=== PATIENT | female | born 1950 | race Caucasian/White ===

== ENCOUNTER 2021-08-12 11:07 | Inpatient (IN) | payer MEDICARE ==
[~2021-08-12] VITALS: Ht 170.2 cm; Wt 104.3 kg
[~2021-08-12 11:07] MED LIST: ACTOS15 MG PO; ATENOLOL50 MG PO; ATORVASTATIN CA20 MG PO; CETIRIZINE HCL10 MG PO; FAMOTIDINE20 MG PO; GLIMEPIRIDE2 MG PO; LEVOTHYROXINE75 MCG PO; METFORMIN HCL500 MG PO; MYRBETRIQ50 MG PO; OLMESARTAN-HCT1 EAC1 PO; TYLENOL ARTHRITIS PO; VASCEPA1 GM PO; VIT D PO
[2021-08-12 12:14] LABS: BASOPHILS # (AUTO) 0.1 (0.0-0.1); BASOPHILS % 0.2 % (0.0-1.0); EOSINOPHILS # (AUTO) 0.1 (0.0-0.4); EOSINOPHILS % 0.6 % (0.0-6.0); HEMATOCRIT 35.4 % (34.2-44.1); HEMOGLOBIN 10.8 g/dL (12.0-16.0); LYMPHOCYTES # (AUTO) 2.1 (1.0-3.2); LYMPHOCYTES % 9.4 % (18.0-39.1); MEAN CORPUSCULAR HEMOGLOBIN 26.2 pg (28-32); MEAN CORPUSCULAR HGB CONC 30.5 g/dL (31-35); MEAN CORPUSCULAR VOLUME 85.7 fL (81-99); MONOCYTES # (AUTO) 1.3 (0.2-0.8); MONOCYTES % 5.7 % (4.4-11.3); NEUTROPHILS # (AUTO) 18.1 (2.1-6.9); NEUTROPHILS % 83.3 % (38.7-80.0); PLATELET COUNT 276 x10e3/uL (140-360); RED BLOOD COUNT 4.13 x10e6/uL (3.6-5.1); RED CELL DISTRIBUTION WIDTH 14.7 % (11.7-14.4)
[2021-08-12 12:40] LABS: ALBUMIN 3.4 g/dL (3.5-5.0); ALBUMIN/GLOBULIN RATIO 0.9 (0.8-2.0); ANION GAP 18.3 mmol/L (8-16); CALCIUM 9.7 mg/dL (8.4-10.2); CREATININE, SERUM 1.79 mg/dL (0.57-1.11); POTASSIUM 4.3 mmol/L (3.5-5.1)
[2021-08-12] MEDS ORDERED: ONDANSETRON HCL INJ 2MG/ML 2ML 2 MG/ML VIAL IV PRN ×2 (12:45→14:15)
[2021-08-12] MEDS ORDERED: TAMSULOSIN HCL 0.4 MG CAP PO SCH (12:45)
[2021-08-12] MEDS ORDERED: Morphine 2mg Syringe 2 MG/ML SYR IV PRN (12:45)
[2021-08-12] MEDS ORDERED: CEFTRIAXONE 1 GM VIAL IM ONE (12:45)
[2021-08-12 12:47] LABS: CLARITY,URINE CLEAR (CLEAR); COLOR,URINE YELLOW (YELLOW); KETONES,URINE NEGATIVE (NEGATIVE); LEUKOCYTE ESTERASE ,URINE NEGATIVE (NEGATIVE); NITRITE,URINE NEGATIVE (NEGATIVE); PROTEIN,URINE DIPSTICK 1+ (NEGATIVE)
[2021-08-12 12:48] LABS: URINE UROBILINOGEN 0.2 mg/dL (0.2 - 1)
[2021-08-12 12:57] LABS: EPITHELIAL CELLS,URINE RARE /LPF; MUCUS,URINE FEW (RARE); RBC,URINE 0-5 /HPF (0-5); WBC,URINE (MAN) 0-5 /HPF (0-5)
[2021-08-12 13:01] LABS: CREATINE KINASE MB 5.7 ng/mL (0-5.0)
[2021-08-12] MEDS ORDERED: CEFTRIAXONE 1 GM in SODIUM CHLORIDE 0.9% 50ML 50 ML IV ONE (13:30)
[2021-08-12] MEDS ORDERED: Morphine 4mg Syringe 4 MG/ML INJ IV PRN (14:15)
[2021-08-12] MEDS ORDERED: ACETAMINOPHEN 325 MG TAB PO PRN (14:30)
[2021-08-12] MEDS ORDERED: DOCUSATE SODIUM 100 MG CAP PO PRN (14:30)
[2021-08-12] MEDS: SODIUM CHLORIDE 0.9% 1000ML 1,000 ML IV SCH ×2 (15:50→20:51)
[2021-08-12] MEDS: PIPERACILLIN/TAZOBACTAM 3.375 GM in SODIUM CHLORIDE 0.9% 50ML 50 ML IV SCH (17:24)
[2021-08-12 20:44] LABS: INR 0.99; PARTIAL THROMBOPLASTIN TIME 29.3 seconds (23.8-35.5); PROTHROMBIN TIME 13.8 seconds (11.9-14.5)
[2021-08-12] MEDS: ATENOLOL 50 MG TAB PO SCH ×2 (20:46→20:55)
[2021-08-12 20:48] VITALS: BP 127/68
[2021-08-12] MEDS: ATORVASTATIN 20 MG TAB PO SCH (20:48)
[2021-08-12 20:51] VITALS: BP 108/50
[2021-08-12 21:00] VITALS: BP 108/50
[2021-08-13] VITALS (11 sets, daily range): BP systolic 107–147; BP diastolic 49–89
[2021-08-13] MEDS: PIPERACILLIN/TAZOBACTAM 3.375 GM in SODIUM CHLORIDE 0.9% 50ML 50 ML IV SCH ×5 (00:19→23:17)
[2021-08-13 05:03] LABS: BASOPHILS % 0.2 % (0.0-1.0); EOSINOPHILS # (AUTO) 0.3 (0.0-0.4); EOSINOPHILS % 2.1 % (0.0-6.0); HEMOGLOBIN 9.5 g/dL (12.0-16.0); LYMPHOCYTES # (AUTO) 2.1 (1.0-3.2); LYMPHOCYTES % 17.2 % (18.0-39.1); MEAN CORPUSCULAR HEMOGLOBIN 26.6 pg (28-32); MEAN CORPUSCULAR HGB CONC 30.6 g/dL (31-35); MEAN CORPUSCULAR VOLUME 86.8 fL (81-99); MONOCYTES % 8.3 % (4.4-11.3); NEUTROPHILS # (AUTO) 8.9 (2.1-6.9); NEUTROPHILS % 71.2 % (38.7-80.0); PLATELET COUNT 257 x10e3/uL (140-360); RED BLOOD COUNT 3.57 x10e6/uL (3.6-5.1); RED CELL DISTRIBUTION WIDTH 15.1 % (11.7-14.4)
[2021-08-13 05:26] LABS: ANION GAP 14.2 mmol/L (8-16); CALCIUM 8.6 mg/dL (8.4-10.2); CREATININE, SERUM 1.52 mg/dL (0.57-1.11); POTASSIUM 4.2 mmol/L (3.5-5.1)
[2021-08-13] MEDS: LEVOTHYROXINE SODIUM 75 MCG TAB PO SCH (06:27)
[2021-08-13] MEDS: SODIUM CHLORIDE 0.9% 1000ML 1,000 ML IV SCH ×3 (06:27→20:22)
[2021-08-13] MEDS: FAMOTIDINE 20 MG TAB PO SCH (08:18)
[2021-08-13] MEDS: SENNOSIDES 8.6 MG TAB PO SCH (08:18)
[2021-08-13] MEDS: MAGNESIUM OXIDE 400 MG TAB PO SCH ×2 (08:22→16:32)
[2021-08-13] MEDS ORDERED: DEXTROSE 50% SYRINGE 50 ML IV PRN (12:00)
[2021-08-13] MEDS: INSULIN LISPRO 100 UNIT/1 ML 3ML VIAL SQ SCH ×3 (12:09→20:19)
[2021-08-13] MEDS: ATENOLOL 50 MG TAB PO SCH (20:18)
[2021-08-13] MEDS: ATORVASTATIN 20 MG TAB PO SCH (20:18)
[2021-08-14] MEDS: SODIUM CHLORIDE 0.9% 1000ML 1,000 ML IV SCH (03:44)
[2021-08-14 04:42] VITALS: BP 128/45
[2021-08-14 05:22] LABS: BASOPHILS % 0.4 % (0.0-1.0); EOSINOPHILS # (AUTO) 0.2 (0.0-0.4); EOSINOPHILS % 1.6 % (0.0-6.0); HEMATOCRIT 29.5 % (34.2-44.1); HEMOGLOBIN 9.1 g/dL (12.0-16.0); LYMPHOCYTES # (AUTO) 2.6 (1.0-3.2); LYMPHOCYTES % 24.5 % (18.0-39.1); MEAN CORPUSCULAR HEMOGLOBIN 26.6 pg (28-32); MEAN CORPUSCULAR HGB CONC 30.8 g/dL (31-35); MEAN CORPUSCULAR VOLUME 86.3 fL (81-99); MONOCYTES # (AUTO) 0.7 (0.2-0.8); MONOCYTES % 6.8 % (4.4-11.3); NEUTROPHILS # (AUTO) 6.9 (2.1-6.9); NEUTROPHILS % 65.6 % (38.7-80.0); PLATELET COUNT 211 x10e3/uL (140-360); RED BLOOD COUNT 3.42 x10e6/uL (3.6-5.1); RED CELL DISTRIBUTION WIDTH 15.6 % (11.7-14.4)
[2021-08-14 05:44] LABS: CALCIUM 8.7 mg/dL (8.4-10.2); CREATININE, SERUM 1.14 mg/dL (0.57-1.11); MAGNESIUM 1.3 MG/DL (1.3-2.1)
[2021-08-14] MEDS: PIPERACILLIN/TAZOBACTAM 3.375 GM in SODIUM CHLORIDE 0.9% 50ML 50 ML IV SCH (05:54)
[2021-08-14] MEDS: LEVOTHYROXINE SODIUM 75 MCG TAB PO SCH (05:54)
[2021-08-14 08:04] VITALS: BP 129/59
[2021-08-14] MEDS ORDERED: CEFUROXIME250 MG PO (08:09)
[2021-08-14] MEDS ORDERED: FLOMAX0.4 MG PO (08:09)
[2021-08-14] MEDS ORDERED: SODIUM BICARBO650 MG PO (08:09)
[2021-08-14] MEDS ORDERED: ONDANSETRON HCL 4 MG ORAL DISINTEGRATING TAB PO PRN (08:30)
[2021-08-14 09:00] VITALS: BP 129/59
[2021-08-14] MEDS: SENNOSIDES 8.6 MG TAB PO SCH (09:00)
[2021-08-14] MEDS: MAGNESIUM OXIDE 400 MG TAB PO SCH (09:00)
[2021-08-14] MEDS: FAMOTIDINE 20 MG TAB PO SCH (09:04)
[2021-08-14 11:20] VITALS: BP 130/56
== END 2021-08-14 11:32 | disposition home or self-care (01) | DRG 698 ==
LOC: ER 12:25 → ERHOLD 14:10 → MED/SURG2 14:57
PROVIDERS: ADMIT Internal Medicine; ATTEND Internal Medicine
DX: N99.89 Other postprocedural complications and disorders of genitourinary system (principal); K65.1 Peritoneal abscess; N17.9 Acute kidney failure, unspecified; N39.0 Urinary tract infection, site not specified; E87.1 Hypo-osmolality and hyponatremia; E78.5 Hyperlipidemia, unspecified; K21.9 Gastro-esophageal reflux disease without esophagitis; F03.90 Unspecified dementia, unspecified severity, without behavioral disturbance, psychotic disturbance, mood disturbance, and anxiety; M19.90 Unspecified osteoarthritis, unspecified site; E66.01 Morbid (severe) obesity due to excess calories; Z68.36 Body mass index [BMI] 36.0-36.9, adult; E83.42 Hypomagnesemia; I12.9 Hypertensive chronic kidney disease with stage 1 through stage 4 chronic kidney disease, or unspecified chronic kidney disease; N18.31 Chronic kidney disease, stage 3a; E11.22 Type 2 diabetes mellitus with diabetic chronic kidney disease; N81.10 Cystocele, unspecified; R33.8 Other retention of urine; N39.498 Other specified urinary incontinence
CPT/HCPCS: 36415; 51700; 71045; 74176; 80048; 80053; 81001; 82550; 82553; 82948; 83605; 83735; 84484; 85025; 85610; 85730; 87040; 87086; 93005; 94799; 99284; J0696; J2270; J2405; J2543; J7030; U0002

== ENCOUNTER 2021-08-28 21:39 | Emergency (ER) | payer MEDICARE ==
[~2021-08-28] VITALS: Ht 322.6 cm; Wt 104.3 kg
[~2021-08-28 21:39] MED LIST changes: +CEFUROXIME250 MG PO; +FLOMAX0.4 MG PO; +SODIUM BICARBO650 MG PO
== END 2021-08-28 22:24 | disposition home or self-care (01) ==
LOC: ER 21:48
DX: R33.9 Retention of urine, unspecified (principal); I10 Essential (primary) hypertension; E11.9 Type 2 diabetes mellitus without complications; E03.9 Hypothyroidism, unspecified; E78.5 Hyperlipidemia, unspecified; K21.9 Gastro-esophageal reflux disease without esophagitis
CPT/HCPCS: 51700; 87086; 87186; 99282

== ENCOUNTER 2021-08-30 22:31 | Emergency (ER) | payer MEDICARE ==
[~2021-08-30] VITALS: Ht 322.6 cm; Wt 104.3 kg
== END 2021-08-30 23:48 | disposition home or self-care (01) ==
LOC: ER 23:02
DX: R33.9 Retention of urine, unspecified (principal); I10 Essential (primary) hypertension; E11.9 Type 2 diabetes mellitus without complications; E78.5 Hyperlipidemia, unspecified; E03.9 Hypothyroidism, unspecified; K21.9 Gastro-esophageal reflux disease without esophagitis
CPT/HCPCS: 99283